=== PATIENT | male | born 1945 | race Caucasian/White ===

== ENCOUNTER → 2016-12-06 | Outpatient (POV) | LOC: OUTPT 00:01 | PROVIDERS: ATTEND Otolaryngology | DX: H90.5 Unspecified sensorineural hearing loss (principal) | CPT/HCPCS: 92557; 92567 ==

== ENCOUNTER 2017-03-30 08:55 | Outpatient (CLI) ==
[2017-03-30 09:40] LABS: ALBUMIN 3.6 g/dL (3.4-5.0); ALBUMIN/GLOBULIN RATIO 1.16; ANION GAP 15.7; BILIRUBIN,TOTAL 0.49 mg/dL (0.00-1.20); BUN/CREATININE RATIO 17.64; CALCIUM 8.5 mg/dL (8.2-10.2); CREATININE 0.85 mg/dL (0.60-1.10); POTASSIUM 3.7 mmol/L (3.5-5.1); TOTAL PROTEIN 6.7 g/dL (5.8-8.1)
== END 2017-03-30 08:56 | disposition home or self-care (01) ==
LOC: LAB 08:55
PROVIDERS: ATTEND Family Medicine
DX: E87.6 Hypokalemia (principal)
CPT/HCPCS: 36415; 80053

== ENCOUNTER 2017-04-19 06:43 | Outpatient (CLI) ==
[2017-04-19 08:05] LABS: ANION GAP 15.2; BUN/CREATININE RATIO 7.14; CALCIUM 9.6 mg/dL (8.2-10.2); CREATININE 1.12 mg/dL (0.60-1.10); POTASSIUM 4.2 mmol/L (3.5-5.1)
== END 2017-04-19 06:44 | disposition home or self-care (01) ==
LOC: LAB 06:43
PROVIDERS: ATTEND Family Medicine
DX: I10 Essential (primary) hypertension (principal)
CPT/HCPCS: 36415; 80048

== ENCOUNTER 2017-04-27 06:50 | Outpatient (CLI) ==
[2017-04-27 07:46] LABS: ALBUMIN 3.8 g/dL (3.4-5.0); ALBUMIN/GLOBULIN RATIO 1.41; ANION GAP 11.6; BILIRUBIN,TOTAL 0.71 mg/dL (0.00-1.20); BUN/CREATININE RATIO 10.1; CALCIUM 9.5 mg/dL (8.2-10.2); CREATININE 0.99 mg/dL (0.60-1.10); POTASSIUM 4.6 mmol/L (3.5-5.1); TOTAL PROTEIN 6.5 g/dL (5.8-8.1)
== END 2017-04-27 06:51 ==
LOC: LAB 06:50
PROVIDERS: ATTEND Physician Assistant Medical
DX: E87.6 Hypokalemia (principal)
CPT/HCPCS: 36415; 80053

== ENCOUNTER 2017-12-02 01:23 | Outpatient (CLI) | END 2017-12-02 01:24 | disposition left against medical advice (07) | LOC: AMBL 01:23 | PROVIDERS: ATTEND Emergency Medicine | DX: R42 Dizziness and giddiness (principal); R41.82 Altered mental status, unspecified ==